=== PATIENT | male | born 1955 | race Caucasian/White ===

== ENCOUNTER 2017-06-04 10:11 | Outpatient (CLI) | payer OTHER ==
[2017-06-04 19:25] LABS: Bilirubin Negative (Negative); Blood, Urine Large (Negative); Glucose, Urine (Dipstick) Negative (Negative); Leukocyte Trace (Negative); Nitrite Negative (Negative); Protein, Urine (Dipstick) 30 mg/dL (Neg-Trace); Urobilinogen 0.2 mg/dL (0.2-1.0)
[2017-06-04 19:26] LABS: Bacteria/HPF 2+ HPF (None Seen); Clarity Slightly Cloudy (Clear); RBC/HPF 21-50 HPF (0-3)
== END 2017-06-04 10:12 | disposition home or self-care (01) ==
LOC: MADLAB 10:11
PROVIDERS: ATTEND Urology
DX: N20.0 Calculus of kidney (principal); N39.0 Urinary tract infection, site not specified
CPT/HCPCS: 36415; 81001; 87077; 87086; 87186

== ENCOUNTER 2017-09-18 13:54 | Outpatient (CLI) | payer OTHER ==
[2017-09-18 14:21] LABS: #Basophils 0.1 thou/uL (0.0-0.2); #Eosinphils 0.2 thou/uL (0.0-0.7); #Lymphocytes 2.2 thou/uL (1.20-3.40); #Neutrophils 7.5 thou/uL (1.40-6.50); %Basophils 0.6 % (0.0-1.0); %Eosinophils 1.6 % (0.0-10.0); %Lymphocytes 20.4 % (21.0-51.0); %Neutrophils 68.5 % (42.0-75.0); Hemoglobin 13.2 g/dL (14.0-18.0); Mean Corpuscular HGB CONC 31.4 g/dL (32.0-36.0); Mean Corpuscular Hemoglobin 27.3 pg (27.0-31.0); Mean Corpuscular Volume 86.9 fl (80.0-94.0); Mean Platelet Volume 6.8 fL (7.4-10.4); Platelet Count 414 thou/uL (130-400); RBC Distribution Width 17.4 % (11.5-14.5); Red Blood Cell (RBC) Count 4.82 mill/uL (4.70-6.10); White Blood Cell (WBC) Count 10.9 thou/uL (4.8-10.8)
[2017-09-18 14:34] LABS: ALT (SGPT) 8 U/L (8-55); AST (SGOT) 9 U/L (5-34); Albumin 3.2 g/dL (3.4-4.8); Alkaline Phosphatase 80 U/L (40-150); Anion Gap 16 mmol/L (10-20); BUN (Urea Nitrogen) 15 mg/dL (8.4-25.7); Bilirubin, Total 0.6 mg/dL (0.2-1.2); Calc. Creatinine Clearance 0 mL/min (70-130); Calcium 9.2 mg/dL (7.8-10.44); Carbon Dioxide 25 mmol/L (23-31); Chloride 102 mmol/L (98-107); Estimated GFR-MDRD Greater than 90; Globulin 4.3 g/dL (2.4-3.5); Glucose 92 mg/dL (80-115); Potassium 5.4 mmol/L (3.5-5.1); Protein, Total 7.5 g/dL (5.8-8.1); Sodium 138 mmol/L (136-145)
[2017-09-18 20:17] LABS: CRP (Inflammatory) 2.48 mg/dL (= or < 0.5)
== END 2017-09-18 13:55 | disposition home or self-care (01) ==
LOC: MADLAB 13:54
PROVIDERS: ATTEND Internal Medicine Infectious Disease
DX: Z79.2 Long term (current) use of antibiotics (principal)
CPT/HCPCS: 80053; 85025; 86140

== ENCOUNTER 2017-09-25 15:14 | Outpatient (CLI) | payer OTHER ==
[2017-09-25 15:44] LABS: #Basophils 0.1 thou/uL (0.0-0.2); #Eosinphils 0.2 thou/uL (0.0-0.7); #Lymphocytes 2.5 thou/uL (1.20-3.40); #Monocytes 1.4 thou/uL (0.11-0.59); #Neutrophils 5.6 thou/uL (1.40-6.50); %Basophils 0.9 % (0.0-1.0); %Eosinophils 2.4 % (0.0-10.0); %Lymphocytes 25.1 % (21.0-51.0); %Neutrophils 57.6 % (42.0-75.0); Hemoglobin 13.4 g/dL (14.0-18.0); Mean Corpuscular HGB CONC 31.4 g/dL (32.0-36.0); Mean Corpuscular Hemoglobin 26.7 pg (27.0-31.0); Mean Corpuscular Volume 85.1 fl (80.0-94.0); Mean Platelet Volume 6.8 fL (7.4-10.4); Platelet Count 354 thou/uL (130-400); RBC Distribution Width 17.5 % (11.5-14.5); Red Blood Cell (RBC) Count 5.04 mill/uL (4.70-6.10); White Blood Cell (WBC) Count 9.8 thou/uL (4.8-10.8)
[2017-09-25 15:55] LABS: Bilirubin, Total 0.5 mg/dL (0.2-1.2)
[2017-09-25 16:28] LABS: ALT (SGPT) 14 U/L (8-55); AST (SGOT) 16 U/L (5-34); Albumin 3.4 g/dL (3.4-4.8); Alkaline Phosphatase 107 U/L (40-150); BUN (Urea Nitrogen) 22 mg/dL (8.4-25.7); Calc. Creatinine Clearance 0 mL/min (70-130); Carbon Dioxide 24 mmol/L (23-31); Estimated GFR-MDRD Greater than 90; Globulin 4.4 g/dL (2.4-3.5); Glucose 91 mg/dL (80-115); Protein, Total 7.8 g/dL (5.8-8.1)
[2017-09-25 16:43] LABS: Chloride 99 mmol/L (98-107); Potassium 4.7 mmol/L (3.5-5.1)
[2017-09-25 16:45] LABS: Anion Gap 19 mmol/L (10-20); Sodium 137 mmol/L (136-145)
[2017-09-26 11:45] LABS: CRP (Inflammatory) 1.41 mg/dL (= or < 0.5)
== END 2017-09-25 15:15 | disposition home or self-care (01) ==
LOC: MADLABBHPM 15:14
PROVIDERS: ATTEND Internal Medicine Infectious Disease
DX: Z51.81 Encounter for therapeutic drug level monitoring (principal); Z79.2 Long term (current) use of antibiotics
CPT/HCPCS: 36415; 80053; 85025; 86140

== ENCOUNTER 2017-10-09 10:27 | Outpatient (CLI) | payer OTHER ==
[2017-10-09 10:51] LABS: #Basophils 0.1 thou/uL (0.0-0.2); #Eosinphils 0.4 thou/uL (0.0-0.7); #Lymphocytes 2.3 thou/uL (1.20-3.40); #Monocytes 1.3 thou/uL (0.11-0.59); #Neutrophils 6.1 thou/uL (1.40-6.50); %Basophils 0.8 % (0.0-1.0); %Eosinophils 3.5 % (0.0-10.0); %Lymphocytes 22.5 % (21.0-51.0); %Monocytes 12.5 % (0.0-10.0); %Neutrophils 60.7 % (42.0-75.0); Hemoglobin 13.2 g/dL (14.0-18.0); Mean Corpuscular HGB CONC 32.4 g/dL (32.0-36.0); Mean Corpuscular Hemoglobin 27.4 pg (27.0-31.0); Mean Corpuscular Volume 84.5 fl (80.0-94.0); Mean Platelet Volume 7.5 fL (7.4-10.4); Platelet Count 213 thou/uL (130-400); RBC Distribution Width 16.2 % (11.5-14.5); Red Blood Cell (RBC) Count 4.82 mill/uL (4.70-6.10); White Blood Cell (WBC) Count 10.1 thou/uL (4.8-10.8)
[2017-10-09 10:54] LABS: ALT (SGPT) 20 U/L (8-55); AST (SGOT) 19 U/L (5-34); Albumin 3.3 g/dL (3.4-4.8); Alkaline Phosphatase 91 U/L (40-150); Anion Gap 16 mmol/L (10-20); BUN (Urea Nitrogen) 21 mg/dL (8.4-25.7); Bilirubin, Total 0.4 mg/dL (0.2-1.2); Calc. Creatinine Clearance 0 mL/min (70-130); Calcium 9.1 mg/dL (7.8-10.44); Carbon Dioxide 26 mmol/L (23-31); Chloride 101 mmol/L (98-107); Estimated GFR-MDRD Greater than 90; Globulin 3.9 g/dL (2.4-3.5); Glucose 139 mg/dL (80-115); Potassium 4.8 mmol/L (3.5-5.1); Protein, Total 7.2 g/dL (5.8-8.1)
[2017-10-09 12:01] LABS: Sodium 138 mmol/L (136-145)
[2017-10-09 18:16] LABS: CRP (Inflammatory) 1.34 mg/dL (= or < 0.5)
== END 2017-10-09 10:28 | disposition home or self-care (01) ==
LOC: MADLAB 10:27
PROVIDERS: ATTEND Internal Medicine Infectious Disease
DX: Z51.81 Encounter for therapeutic drug level monitoring (principal); Z79.2 Long term (current) use of antibiotics
CPT/HCPCS: 36415; 80053; 85025; 86140

== ENCOUNTER 2017-10-16 16:09 | Outpatient (CLI) | payer OTHER ==
[2017-10-16 17:27] LABS: #Basophils 0.1 thou/uL (0.0-0.2); #Eosinphils 0.4 thou/uL (0.0-0.7); #Lymphocytes 2.6 thou/uL (1.20-3.40); #Monocytes 0.9 thou/uL (0.11-0.59); #Neutrophils 4.5 thou/uL (1.40-6.50); %Basophils 0.8 % (0.0-1.0); %Eosinophils 4.7 % (0.0-10.0); %Lymphocytes 30.5 % (21.0-51.0); %Monocytes 10.8 % (0.0-10.0); %Neutrophils 53.2 % (42.0-75.0); Hemoglobin 13.4 g/dL (14.0-18.0); Mean Corpuscular HGB CONC 31.9 g/dL (32.0-36.0); Mean Corpuscular Hemoglobin 27.3 pg (27.0-31.0); Mean Corpuscular Volume 85.6 fl (80.0-94.0); Mean Platelet Volume 7.1 fL (7.4-10.4); Platelet Count 235 thou/uL (130-400); RBC Distribution Width 16.6 % (11.5-14.5); Red Blood Cell (RBC) Count 4.91 mill/uL (4.70-6.10); White Blood Cell (WBC) Count 8.4 thou/uL (4.8-10.8)
[2017-10-16 17:36] LABS: ALT (SGPT) 17 U/L (8-55); AST (SGOT) 19 U/L (5-34); Albumin 3.4 g/dL (3.4-4.8); Alkaline Phosphatase 91 U/L (40-150); Anion Gap 20 mmol/L (10-20); BUN (Urea Nitrogen) 17 mg/dL (8.4-25.7); Bilirubin, Total 0.6 mg/dL (0.2-1.2); Calc. Creatinine Clearance 0 mL/min (70-130); Calcium 8.9 mg/dL (7.8-10.44); Carbon Dioxide 22 mmol/L (23-31); Chloride 103 mmol/L (98-107); Estimated GFR-MDRD Greater than 90; Globulin 4.1 g/dL (2.4-3.5); Glucose 124 mg/dL (80-115); Potassium 4.5 mmol/L (3.5-5.1); Protein, Total 7.5 g/dL (5.8-8.1); Sodium 140 mmol/L (136-145)
[2017-10-16 20:29] LABS: CRP (Inflammatory) 1.51 mg/dL (= or < 0.5)
== END 2017-10-16 16:10 | disposition home or self-care (01) ==
LOC: MADLAB 16:09
PROVIDERS: ATTEND Internal Medicine Infectious Disease
DX: R22.9 Localized swelling, mass and lump, unspecified (principal); Z79.899 Other long term (current) drug therapy
CPT/HCPCS: 80053; 85025; 86140

== ENCOUNTER 2017-10-23 15:49 | Outpatient (CLI) | payer OTHER ==
[2017-10-23 17:22] LABS: #Eosinphils 0.4 thou/uL (0.0-0.7); #Lymphocytes 2.6 thou/uL (1.20-3.40); #Monocytes 0.9 thou/uL (0.11-0.59); #Neutrophils 4.5 thou/uL (1.40-6.50); %Basophils 0.5 % (0.0-1.0); %Eosinophils 5.1 % (0.0-10.0); %Lymphocytes 30.4 % (21.0-51.0); %Monocytes 10.8 % (0.0-10.0); %Neutrophils 53.2 % (42.0-75.0); Mean Corpuscular HGB CONC 32.2 g/dL (32.0-36.0); Mean Corpuscular Hemoglobin 27.6 pg (27.0-31.0); Mean Corpuscular Volume 85.7 fl (80.0-94.0); Mean Platelet Volume 7.6 fL (7.4-10.4); Platelet Count 204 thou/uL (130-400); RBC Distribution Width 16.7 % (11.5-14.5); Red Blood Cell (RBC) Count 4.72 mill/uL (4.70-6.10); White Blood Cell (WBC) Count 8.5 thou/uL (4.8-10.8)
[2017-10-23 17:34] LABS: ALT (SGPT) 14 U/L (8-55); AST (SGOT) 14 U/L (5-34); Albumin 3.2 g/dL (3.4-4.8); Alkaline Phosphatase 87 U/L (40-150); Anion Gap 15 mmol/L (10-20); BUN (Urea Nitrogen) 18 mg/dL (8.4-25.7); Bilirubin, Total 0.6 mg/dL (0.2-1.2); Calc. Creatinine Clearance 0 mL/min (70-130); Calcium 8.9 mg/dL (7.8-10.44); Carbon Dioxide 24 mmol/L (23-31); Chloride 103 mmol/L (98-107); Estimated GFR-MDRD Greater than 90; Globulin 3.7 g/dL (2.4-3.5); Glucose 163 mg/dL (80-115); Potassium 4.4 mmol/L (3.5-5.1); Protein, Total 6.9 g/dL (5.8-8.1); Sodium 138 mmol/L (136-145)
[2017-10-23 20:35] LABS: CRP (Inflammatory) 1.23 mg/dL (= or < 0.5)
== END 2017-10-23 15:50 | disposition home or self-care (01) ==
LOC: MADLAB 15:49
PROVIDERS: ATTEND Internal Medicine Infectious Disease
DX: Z51.81 Encounter for therapeutic drug level monitoring (principal); Z79.2 Long term (current) use of antibiotics
CPT/HCPCS: 80053; 85025; 86140

== ENCOUNTER 2017-10-30 14:05 | Outpatient (CLI) | payer OTHER ==
[2017-10-30 14:47] LABS: Hemoglobin 14.1 g/dL (14.0-18.0); Mean Corpuscular HGB CONC 32.8 g/dL (32.0-36.0); Mean Corpuscular Hemoglobin 28.1 pg (27.0-31.0); Mean Corpuscular Volume 85.7 fL (80.0-94.0); Mean Platelet Volume 7.6 fL (7.4-10.4); Platelet Count 261 thou/uL (130-400); RBC Distribution Width 17.1 % (11.5-14.5); Red Blood Cell (RBC) Count 5.01 mill/uL (4.70-6.10); White Blood Cell (WBC) Count 9.3 thou/uL (4.8-10.8)
[2017-10-30 14:48] LABS: #Basophils 0.1 thou/uL (0.0-0.2); #Eosinphils 0.4 thou/uL (0.0-0.7); #Lymphocytes 2.8 thou/uL (1.20-3.40); #Monocytes 1.2 thou/uL (0.11-0.59); #Neutrophils 4.9 thou/uL (1.40-6.50); %Eosinophils 4.3 % (0.0-10.0); %Lymphocytes 29.8 % (21.0-51.0); %Monocytes 12.4 % (0.0-10.0); %Neutrophils 52.4 % (42.0-75.0)
[2017-10-30 15:02] LABS: ALT (SGPT) 20 U/L (8-55); AST (SGOT) 17 U/L (5-34); Albumin 3.9 g/dL (3.4-4.8); Alkaline Phosphatase 101 U/L (40-150); Anion Gap 20 mmol/L (10-20); BUN (Urea Nitrogen) 19 mg/dL (8.4-25.7); Bilirubin, Total 0.8 mg/dL (0.2-1.2); Calc. Creatinine Clearance 0 mL/min (70-130); Calcium 9.6 mg/dL (7.8-10.44); Carbon Dioxide 21 mmol/L (23-31); Chloride 103 mmol/L (98-107); Estimated GFR-MDRD Greater than 90; Globulin 4.3 g/dL (2.4-3.5); Glucose 121 mg/dL (80-115); Potassium 4.4 mmol/L (3.5-5.1); Protein, Total 8.2 g/dL (5.8-8.1); Sodium 140 mmol/L (136-145)
[2017-10-30 18:40] LABS: Bilirubin Negative (Negative); Blood, Urine Trace (Negative); Clarity Clear (Clear); Glucose, Urine (Dipstick) Negative (Negative); Leukocyte Small (Negative); Nitrite Negative (Negative); Protein, Urine (Dipstick) Negative (Neg-Trace); Specific Gravity, Urine 1.015 (1.005-1.030); pH, Urine 6.5 (5.0-9.0)
[2017-10-30 19:12] LABS: Bacteria/HPF Rare-Few HPF (None Seen); RBC/HPF 0-3 HPF (0-3)
== END 2017-10-30 14:06 | disposition home or self-care (01) ==
LOC: MADLAB 14:05
PROVIDERS: ATTEND Internal Medicine Infectious Disease
DX: Z51.81 Encounter for therapeutic drug level monitoring (principal); Z79.899 Other long term (current) drug therapy
CPT/HCPCS: 36415; 80053; 81001; 85025; 86140; 87086

== ENCOUNTER 2017-11-26 15:13 | Outpatient (CLI) | payer OTHER ==
[2017-11-26 15:37] LABS: Bilirubin Negative (Negative); Blood, Urine Trace (Negative); Glucose, Urine (Dipstick) Negative (Negative); Leukocyte Moderate (Negative); Nitrite Negative (Negative); Protein, Urine (Dipstick) Negative (Neg-Trace); Specific Gravity, Urine 1.025 (1.005-1.030); Urobilinogen 0.2 mg/dL (0.2-1.0); pH, Urine 5.5 (5.0-9.0)
[2017-11-26 15:40] LABS: Clarity Hazy (Clear); RBC/HPF 0-3 HPF (0-3)
[2017-11-26 15:41] LABS: Bacteria/HPF Rare-Few HPF (None Seen); Squamous Epithelial 0-3 HPF (0-3)
== END 2017-11-26 15:14 | disposition home or self-care (01) ==
LOC: MADLAB 15:13
PROVIDERS: ATTEND Internal Medicine Infectious Disease
DX: N39.0 Urinary tract infection, site not specified (principal)
CPT/HCPCS: 81001; 87077; 87086; 87186

== ENCOUNTER 2018-07-23 11:19 | Outpatient (CLI) | payer OTHER | END 2018-07-23 11:20 | disposition home or self-care (01) | LOC: MADLABBHPM 11:19 | PROVIDERS: ATTEND Family Medicine | DX: I50.23 Acute on chronic systolic (congestive) heart failure (principal) | CPT/HCPCS: 36415; 83880 ==

== ENCOUNTER 2018-08-10 21:31 | Emergency (ER) | payer OTHER ==
--- NOTE | 2018-08-10 22:11 | RAD ---
SINGLE VIEW CHEST: 08/10/18 COMPARISON: HISTORY: FINDINGS: There is no evidence of consolidation, mass, or pleural effusion. IMPRESSION: Cardiomegaly without evidence of acute cardiopulmonary disease. POS: [facility]
[2018-08-10 22:28] LABS: INR-International Normal Ratio 2.3; PTT 41.7 SEC (22.9-36.1); Prothrombin Time 25.1 SEC (12.0-14.7)
[2018-08-10 22:37] LABS: Bilirubin Negative (Negative); Blood, Urine Moderate (Negative); Clarity Cloudy (Clear); Glucose, Urine (Dipstick) Negative (Negative); Leukocyte Small (Negative); Nitrite Negative (Negative); Protein, Urine (Dipstick) Negative (Neg-Trace)
[2018-08-10 22:40] LABS: #Basophils 0.1 thou/uL (0.0-0.2); #Eosinphils 0.4 thou/uL (0.0-0.7); #Lymphocytes 2.4 thou/uL (1.20-3.40); #Monocytes 1.3 thou/uL (0.11-0.59); #Neutrophils 10.1 thou/uL (1.40-6.50); %Basophils 0.7 % (0.0-1.0); %Lymphocytes 16.6 % (21.0-51.0); %Neutrophils 70.7 % (42.0-75.0); Hemoglobin 14.3 g/dL (14.0-18.0); Mean Corpuscular HGB CONC 30.9 g/dL (32.0-36.0); Mean Corpuscular Hemoglobin 25.2 pg (27.0-31.0); Mean Corpuscular Volume 81.8 fL (78.0-98.0); Mean Platelet Volume 7.8 fL (7.4-10.4); Platelet Count 310 thou/uL (130-400); RBC Distribution Width 17.6 % (11.5-14.5); Red Blood Cell (RBC) Count 5.66 mill/uL (4.70-6.10); White Blood Cell (WBC) Count 14.3 thou/uL (4.8-10.8)
[2018-08-10] MEDS ORDERED: Ondansetron PF 4 MG/2 ML Vial ONE (22:44)
[2018-08-10 22:47] LABS: Bacteria/HPF 3+ HPF (None Seen); Crystals/HPF 1+ AMORPH PHOS HPF (Negative); WBC/HPF 21-50 HPF (0-3)
[2018-08-10 22:49] LABS: CKMB 1.7 ng/mL (0-6.6)
[2018-08-10 22:58] LABS: ALT (SGPT) 16 U/L (8-55); AST (SGOT) 39 U/L (5-34); Albumin 3.9 g/dL (3.4-4.8); Alkaline Phosphatase 71 U/L (40-150); Anion Gap 17 mmol/L (10-20); BUN (Urea Nitrogen) 25 mg/dL (8.4-25.7); Bilirubin, Total 0.6 mg/dL (0.2-1.2); CK (CPK) 39 U/L (30-200); Calc. Creatinine Clearance 0 mL/min (70-130); Calcium 9.9 mg/dL (7.8-10.44); Carbon Dioxide 25 mmol/L (23-31); Chloride 98 mmol/L (98-107); Estimated GFR-MDRD 68; Globulin 5.2 g/dL (2.4-3.5); Glucose 146 mg/dL (80-115); Potassium 4.8 mmol/L (3.5-5.1); Protein, Total 9.1 g/dL (5.8-8.1); Sodium 135 mmol/L (136-145)
[2018-08-10] MEDS ORDERED: Piperacillin/Tazobactam 3.375 GM VIAL ONE (23:00)
[2018-08-10] MEDS ORDERED: Sodium Chloride 0.9% 250 ML 250 ML ONE (23:01)
[2018-08-10] MEDS ORDERED: Sodium Chloride 0.9% 100 ML ONE (23:01)
[2018-08-10] MEDS ORDERED: Lidocaine Viscous Sol 2% 15 ml UD Cup ONE (23:55)
[2018-08-10] MEDS ORDERED: Mag-Al Plus 1200 MG/1200 MG/120 MG/30 ML UDCUP ONE (23:55)
[2018-08-10] MEDS ORDERED: diphenhydrAMINE 25 MG CAP ONE (23:59)
[2018-08-11] MEDS ORDERED: Acetaminophen 500 MG TAB ONE (00:01)
--- NOTE | 2018-08-12 07:21 | RAD ---
SINGLE VIEW OF THE CHEST: 08/10/18 COMPARISON: 07/24/18 HISTORY: CHF and edema. FINDINGS: Single view of the chest shows an enlarged but stable cardiomediastinal silhouette. The pacemaker is unchanged in position. There is no evidence of consolidation, mass, or pleural effusion. The bones ar e unremarkable. IMPRESSION: Stable cardiomegaly. POS: [facility]
== END 2018-08-11 01:29 | disposition short-term general hospital (02) ==
LOC: MADERS 21:31
DX: M79.89 Other specified soft tissue disorders (principal); N39.0 Urinary tract infection, site not specified; I48.91 Unspecified atrial fibrillation; E11.9 Type 2 diabetes mellitus without complications; E78.5 Hyperlipidemia, unspecified; I10 Essential (primary) hypertension; E66.9 Obesity, unspecified; J44.9 Chronic obstructive pulmonary disease, unspecified; Z86.711 Personal history of pulmonary embolism; F41.9 Anxiety disorder, unspecified; F32.9 Major depressive disorder, single episode, unspecified; Z79.899 Other long term (current) drug therapy
CPT/HCPCS: 36415; 71045; 80053; 81003; 81015; 82550; 82553; 83605; 84484; 85025; 85610; 85730; 87040; 87086; 93005; 96365; 96366; 96367; 96375; J1956; J2405; J2543; J3370; J7050

== ENCOUNTER 2018-10-28 09:00 | Outpatient (CLI) | payer OTHER ==
[2018-10-28 09:57] LABS: Thyroid Stimulating Hormone 0.1073 uIU/mL (0.35-4.94)
--- NOTE | 2018-10-28 11:13 | ULT ---
ULTRASOUND THYROID STANDARD: Date: 10/28/18 HISTORY: Thyroid nodules. COMPARISON: CT dated 09/17/18. FINDINGS: The background echotexture is very heterogeneous. Normal vascularity. The left lobe of the thyroid is a 1.8 x 1.5 x 1.8 cm isoechoic, wider than tall, solid mass with flui d margins without echogenic foci. This is a TIRADS 3: Mildly suspicious. Given its size, follow-up in 6 months-1 year is recommended. In the right lobe of the thyroid is a 2.8 x 1.7 x 3.1 cm isoechoic, wider than tall, solid mass with ill-defined margins without echogenic foci. This is a TIRADS 3: Mildly suspicious. Given its size, fi ne needle aspiration is recommended. IMPRESSION: 1. Right lobe of thyroid dominant mass measuring up to 3.2 cm is a TIRADS 3: Mildly suspicious. Give n its large size, fine needle aspiration is recommended. 2. Left lobe of the thyroid mass is also a TIRADS 3: Mildly suspicious. Although given its smaller s ize, this fits the 6 months-1 year criteria for follow-up. POS: [facility]
[2018-10-28 17:49] LABS: Free T4 (Free Thyroxine) 1.33 ng/dL (0.70-1.48)
== END 2018-10-28 09:01 | disposition home or self-care (01) ==
LOC: MADLABBHPM 09:00
PROVIDERS: ATTEND Family Medicine
DX: E04.1 Nontoxic single thyroid nodule (principal); E07.9 Disorder of thyroid, unspecified
CPT/HCPCS: 36415; 76536; 84439; 84443

== ENCOUNTER 2021-09-07 00:15 | Emergency (ER) | payer MEDICARE ==
[2021-09-07] MEDS ORDERED: Furosemide 40 MG/4 ML VIAL ONE (00:53)
[2021-09-07 01:15] LABS: #Basophils 0.1 thou/uL (0.0-0.2); #Eosinphils 0.3 thou/uL (0.0-0.7); #Lymphocytes 1.8 thou/uL (1.20-3.40); #Monocytes 0.9 thou/uL (0.11-0.59); #Neutrophils 7.4 thou/uL (1.40-6.50); %Basophils 0.6 % (0.0-1.0); %Eosinophils 2.9 % (0.0-10.0); %Lymphocytes 17.4 % (21.0-51.0); %Monocytes 8.7 % (0.0-10.0); %Neutrophils 70.5 % (42.0-75.0); Hemoglobin 12.4 g/dL (14.0-18.0); Mean Corpuscular HGB CONC 30.1 g/dL (32.0-36.0); Mean Corpuscular Volume 83.2 fL (78.0-98.0); Mean Platelet Volume 7.2 fL (7.4-10.4); Platelet Count 240 thou/uL (130-400); RBC Distribution Width 17.4 % (11.5-14.5); Red Blood Cell (RBC) Count 4.98 mill/uL (4.70-6.10); White Blood Cell (WBC) Count 10.5 thou/uL (4.8-10.8)
[2021-09-07 01:41] LABS: ALT (SGPT) 7 U/L (8-55); AST (SGOT) 10 U/L (5-34); Alkaline Phosphatase 52 U/L (40-110); Anion Gap 12 mmol/L (10-20); BUN (Urea Nitrogen) 16 mg/dL (8.4-25.7); Bilirubin, Total 0.5 mg/dL (0.2-1.2); CK (CPK) 46 U/L (30-200); Calcium 9.3 mg/dL (7.8-10.44); Carbon Dioxide 27 mmol/L (23-31); Chloride 103 mmol/L (98-107); Glucose 153 mg/dL (80-115); Sodium 138 mmol/L (136-145)
[2021-09-07 01:44] LABS: CKMB 2.2 ng/mL (0-6.6); Troponin I 0.024 ng/mL (< 0.028)
[2021-09-07 01:55] LABS: Calc. Creatinine Clearance 0 mL/min (70-130)
[2021-09-07 02:21] LABS: Albumin 3.3 g/dL (3.4-4.8); Globulin 3.7 g/dL (2.4-3.5)
[2021-09-07] MEDS ORDERED: Iopamidol 370 76% 125 ML VIAL FS ONE (09:00)
[2021-09-07] MEDS ORDERED: Sodium Chloride 0.9% 100 ML BAG ONE (12:38)
== END 2021-09-07 06:20 ==
LOC: MADERS 00:15
DX: R07.89 Other chest pain (principal); I48.91 Unspecified atrial fibrillation; E11.9 Type 2 diabetes mellitus without complications; E78.5 Hyperlipidemia, unspecified; I10 Essential (primary) hypertension; E66.9 Obesity, unspecified; Z79.01 Long term (current) use of anticoagulants; Z79.899 Other long term (current) drug therapy
CPT/HCPCS: 71045; 71275; 80053; 82550; 84484; 85025; 85379; 93005; 94760; 96372; J1940; J3490; Q9967

== ENCOUNTER 2022-04-29 08:11 | Emergency (ER) | payer MEDICARE ==
[2022-04-29 09:36] LABS: #Basophils 0.1 thou/uL (0.0-0.2); #Eosinphils 0.3 thou/uL (0.0-0.7); #Lymphocytes 1.5 thou/uL (1.20-3.40); #Neutrophils 6.7 thou/uL (1.40-6.50); %Eosinophils 2.7 % (0.0-10.0); %Lymphocytes 16.1 % (21.0-51.0); %Monocytes 10.4 % (0.0-10.0); %Neutrophils 69.8 % (42.0-75.0); Anisocytosis SLIGHT = 6-15 cells (100X) (0-5/hpf); Hemoglobin 12.3 g/dL (14.0-18.0); Hypochromia SLIGHT = 6-15 cells (100X) (0-5/hpf); MDiff Complete? YES; Mean Corpuscular HGB CONC 29.2 g/dL (32.0-36.0); Mean Corpuscular Hemoglobin 22.3 pg (27.0-31.0); Mean Corpuscular Volume 76.5 fL (78.0-98.0); Mean Platelet Volume 9.4 fL (7.4-10.4); Platelet Count 294 thou/uL (130-400); Platelet Morphology Comment Appears Adequate; RBC Distribution Width 18.2 % (11.5-14.5); Red Blood Cell (RBC) Count 5.51 mill/uL (4.70-6.10); White Blood Cell (WBC) Count 9.6 thou/uL (4.8-10.8)
[2022-04-29 09:54] LABS: ALT (SGPT) 14 U/L (8-55); AST (SGOT) 12 U/L (5-34); Alkaline Phosphatase 57 U/L (40-110); Anion Gap 13 mmol/L (10-20); BUN (Urea Nitrogen) 17 mg/dL (8.4-25.7); Bilirubin, Total 0.6 mg/dL (0.2-1.2); Calc. Creatinine Clearance 0 mL/min (70-130); Calcium 8.6 mg/dL (7.8-10.44); Carbon Dioxide 28 mmol/L (23-31); Chloride 100 mmol/L (98-107); Estimated GFR 96; Globulin 3.3 g/dL (2.4-3.5); Glucose 119 mg/dL (80-115); Potassium 4.2 mmol/L (3.5-5.1); Protein, Total 6.3 g/dL (5.8-8.1); Sodium 137 mmol/L (136-145)
[2022-04-29] MEDS ORDERED: Furosemide 40 MG/4 ML VIAL ONE (10:45)
[2022-04-29 10:50] LABS: Bilirubin Negative (Negative); Blood, Urine Trace (Negative); Glucose, Urine (Dipstick) Negative (Negative); Ketone, Urine Negative (Negative); Leukocyte Trace (Negative); Nitrite Negative (Negative); Protein, Urine (Dipstick) Negative (Neg-Trace); Specific Gravity, Urine 1.015 (1.005-1.030); Urobilinogen 0.2 mg/dL (Less than 2); pH, Urine 6.5 (5.0-9.0)
[2022-04-29 10:59] LABS: Clarity Hazy (Clear)
[2022-04-29 11:00] LABS: Bacteria/HPF Rare-Few HPF (None Seen); Squamous Epithelial 0-3 HPF (0-3)
[2022-04-29] MEDS ORDERED: Mag-Al Plus 1200 MG/1200 MG/120 MG/30 ML UDCUP ONE (14:33)
[2022-04-29] MEDS ORDERED: Lidocaine Viscous Sol 2% 15 ml UD Cup ONE (14:33)
== END 2022-04-29 11:54 | disposition short-term general hospital (02) ==
LOC: MADERS 08:11
DX: N50.82 Scrotal pain (principal); N50.89 Other specified disorders of the male genital organs; I48.91 Unspecified atrial fibrillation; E11.9 Type 2 diabetes mellitus without complications; I10 Essential (primary) hypertension; E78.5 Hyperlipidemia, unspecified; E66.9 Obesity, unspecified; Z68.45 Body mass index [BMI] 70 or greater, adult; Z87.442 Personal history of urinary calculi; Z79.01 Long term (current) use of anticoagulants; Z79.899 Other long term (current) drug therapy
CPT/HCPCS: 80053; 81003; 81015; 85025; 96374; J1940

== ENCOUNTER 2022-05-19 16:37 | Emergency (ER) | payer MEDICARE ==
[2022-05-19 17:41] LABS: #Basophils 0.1 thou/uL (0.0-0.2); #Eosinphils 0.2 thou/uL (0.0-0.7); #Lymphocytes 1.7 thou/uL (1.20-3.40); #Neutrophils 6.9 thou/uL (1.40-6.50); %Basophils 0.8 % (0.0-1.0); %Eosinophils 2.2 % (0.0-10.0); %Lymphocytes 17.5 % (21.0-51.0); %Monocytes 10.1 % (0.0-10.0); %Neutrophils 69.4 % (42.0-75.0); Hemoglobin 10.4 g/dL (14.0-18.0); Mean Corpuscular HGB CONC 29.3 g/dL (32.0-36.0); Mean Corpuscular Volume 74.9 fL (78.0-98.0); Mean Platelet Volume 7.9 fL (7.4-10.4); Platelet Count 267 thou/uL (130-400); RBC Distribution Width 17.5 % (11.5-14.5); Red Blood Cell (RBC) Count 4.71 mill/uL (4.70-6.10); White Blood Cell (WBC) Count 9.9 thou/uL (4.8-10.8)
[2022-05-19 17:42] LABS: Anisocytosis SLIGHT = 6-15 cells (100X) (0-5/hpf); MDiff Complete? YES; Microcytosis SLIGHT = 6-15 cells (100X) (0-5/hpf); Polychromasia SLIGHT = 2-3 cells (100X) (0-2/hpf); Target Cells SLIGHT = 2-5 cells (100X) (0-1/hpf)
[2022-05-19 17:47] LABS: ALT (SGPT) 10 U/L (8-55); AST (SGOT) 11 U/L (5-34); Albumin 2.8 g/dL (3.4-4.8); Alkaline Phosphatase 61 U/L (40-110); Anion Gap 14 mmol/L (10-20); BUN (Urea Nitrogen) 22 mg/dL (8.4-25.7); Bilirubin, Total 0.6 mg/dL (0.2-1.2); Calc. Creatinine Clearance 0 mL/min (70-130); Calcium 8.9 mg/dL (7.8-10.44); Carbon Dioxide 28 mmol/L (23-31); Chloride 102 mmol/L (98-107); Estimated GFR 97; Globulin 3.2 g/dL (2.4-3.5); Glucose 137 mg/dL (80-115); Potassium 4.9 mmol/L (3.5-5.1); Sodium 139 mmol/L (136-145)
[2022-05-19 18:19] LABS: Bilirubin Negative (Negative); Blood, Urine Small (Negative); Clarity Clear (Clear); Glucose, Urine (Dipstick) Negative (Negative); Ketone, Urine Negative (Negative); Leukocyte Negative (Negative); Nitrite Negative (Negative); Protein, Urine (Dipstick) Negative (Neg-Trace); Specific Gravity, Urine 1.015 (1.005-1.030); Urobilinogen 0.2 mg/dL (Less than 2)
[2022-05-19 18:28] LABS: Bacteria/HPF Rare-Few HPF (None Seen)
[2022-05-19] MEDS ORDERED: Furosemide 40 MG/4 ML VIAL ONE (18:30)
== END 2022-05-19 22:34 | disposition short-term general hospital (02) ==
LOC: MADERS 16:37
DX: I11.0 Hypertensive heart disease with heart failure (principal); I50.9 Heart failure, unspecified; R77.8 Other specified abnormalities of plasma proteins; I48.91 Unspecified atrial fibrillation; E11.9 Type 2 diabetes mellitus without complications; E78.5 Hyperlipidemia, unspecified; E66.9 Obesity, unspecified; Z68.45 Body mass index [BMI] 70 or greater, adult; Z87.442 Personal history of urinary calculi; Z79.01 Long term (current) use of anticoagulants; Z79.899 Other long term (current) drug therapy
CPT/HCPCS: 36415; 71045; 80053; 81003; 81015; 82553; 83880; 84484; 85025; 93005; 96374; J1940

== ENCOUNTER 2022-10-13 05:06 | Emergency (ER) | payer MEDICARE ==
[2022-10-13] MEDS ORDERED: Fentanyl 100 MCG/2 ML VIAL ONE ×2 (05:30→08:18)
[2022-10-13 05:51] LABS: Bilirubin Negative (Negative); Blood, Urine Trace (Negative); Clarity Cloudy (Clear); Glucose, Urine (Dipstick) Negative (Negative); Ketone, Urine Negative (Negative); Leukocyte Moderate (Negative); Nitrite Negative (Negative); Protein, Urine (Dipstick) Negative (Neg-Trace); Urobilinogen 0.2 mg/dL (Less than 2); pH, Urine 7.5 (5.0-9.0)
[2022-10-13 06:01] LABS: RBC/HPF 0-3 HPF (0-3); WBC/HPF Greater than 50 HPF (0-3)
[2022-10-13 06:02] LABS: Bacteria/HPF 2+ HPF (None Seen); Squamous Epithelial 0-3 HPF (0-3)
[2022-10-13 06:26] LABS: Hemoglobin 9.1 g/dL (14.0-18.0)
[2022-10-13] MEDS ORDERED: cefTRIAXone\\ROCEPHIN 1 GM VIAL ONE (08:18)
[2022-10-13] MEDS ORDERED: Sodium Chloride 0.9% 100 ML ONE (08:18)
[2022-10-13] MEDS ORDERED: Iopamidol 370 76% 100 ML VIAL ONE (08:41)
[2022-10-13 09:02] LABS: Hemoglobin 9.1 g/dL (14.0-18.0)
== END 2022-10-13 09:19 | disposition home or self-care (01) ==
LOC: MADERS 05:06
DX: M54.9 Dorsalgia, unspecified (principal); G89.29 Other chronic pain; N39.0 Urinary tract infection, site not specified; E11.9 Type 2 diabetes mellitus without complications; E78.5 Hyperlipidemia, unspecified; I10 Essential (primary) hypertension; E66.9 Obesity, unspecified; W18.30XA Fall on same level, unspecified, initial encounter; Y92.091 Bathroom in other non-institutional residence as the place of occurrence of the external cause; Z79.899 Other long term (current) drug therapy
CPT/HCPCS: 70450; 71260; 72125; 74177; 81003; 81015; 85014; 85018; 87077; 87086; 87186; 96374; 96375; 96376; J0696; J3010; J3490; Q9967